=== PATIENT | male | born 1970 | race Caucasian/White ===

== ENCOUNTER 2020-05-02 23:57 | Emergency (ER) | payer SELFPAY ==
[~2020-05-02] VITALS: Ht 172.7 cm; Wt 86.2 kg
[2020-05-03] MEDS ORDERED: LIDOCAINE W/ EPINEPHRINE 1% 20ML VIAL ID ONE (01:00)
[2020-05-03] MEDS ORDERED: TETANUS-DIPTH-ACEL PERTUSSIS 0.5ML SYR Tdap IM ONE (01:00)
[2020-05-03] MEDS ORDERED: cefTRIAXone SOD 1,000 MG VL IM ONE (01:00)
[2020-05-03] MEDS ORDERED: LIDOCAINE 1% HCL (LOCAL ANESTH.) INJ 20ML MDV ID ONE (01:00)
[2020-05-03 01:58] LABS: Urine Bacteria NONE SEEN /hpf (None Seen); Urine Blood Negative /uL (Negative); Urine Hyaline Cast FEW /lpf (0 - 2); Urine Specific Gravity 1.008 (1.001-1.035); Urine WBC <1 /hpf (0 - 3)
[2020-05-03 03:21] VITALS: BP 142/79
== END 2020-05-03 07:23 | disposition home or self-care (01) ==
LOC: ER 23:57
DX: S01.81XA Laceration without foreign body of other part of head, initial encounter (principal); Y08.89XA Assault by other specified means, initial encounter; Y93.89 Activity, other specified; Y92.89 Other specified places as the place of occurrence of the external cause; Y99.8 Other external cause status
CPT/HCPCS: 12013; 70450; 70486; 81001; 90471; 90715; 96372; 99285; J0696; J2001